=== PATIENT | male | born 1970 | race Caucasian/White ===

== ENCOUNTER 2020-10-22 12:49 | Emergency (ER) | payer SELFPAY ==
[~2020-10-22] VITALS: Ht 170.2 cm; Wt 78.0 kg
[2020-10-22 12:50] VITALS: BP 137/82
== END 2020-10-22 14:06 | disposition left against medical advice (07) ==
LOC: ER 12:49
DX: F41.9 Anxiety disorder, unspecified (principal); Z53.21 Procedure and treatment not carried out due to patient leaving prior to being seen by health care provider